=== PATIENT | male | born 1980 | race Caucasian/White ===

== ENCOUNTER 2019-05-21 07:36 | Day surgery (SDC) | payer SELFPAY ==
[2019-05-21 08:17] VITALS: BP 147/92; PULSE 70; RESP 16; TEMP 36.5; O2SAT 100; BMI 24.7
[2019-05-21] MEDS: Lactated Ringers 1,000 ML 100 ML IV (08:31)
[2019-05-21] MEDS: Cefazolin 2 GM in 0.9% Normal Saline 100 ML IV (09:26)
--- NOTE | 2019-05-21 09:33 | DCINST_ITS ---
Discharge Diet: Light diet - advance as tolerated Discharge Activity: Return to Normal Activity Call your doctor if your incision/area has: Continuous Slow Oozing, Sudden Increased Bleeding Suture Line Care: Avoid Pulling/Pushing, Avoid Pinching/Bending Allergies/Adverse Reactions: Allergies No Known Allergies Allergy (Verified 05/21/19 08:05) Medications to take at Discharge Oxycodone [Oxyir] 10 mg PO Q4H PRN PRN 05/20/19 Ciprofloxacin [Cipro] 500 mg PO BID #6 tab 05/21/19 Oxycodone HCl/Acetaminophen [Percocet 5/325] 1 tab PO Q4H PRN PRN #14 tab 05/21/19 The following prescriptions were given: Ciprofloxacin [Cipro] 500 mg PO BID #6 tab Prescription Printed Oxycodone HCl/Acetaminophen [Percocet 5/325] 1 tab PO Q4H PRN PRN #14 tab PRN Reason: Pain Prescription Printed Primary Care Physician: Ángel Muniz MD [Primary Care Provider] - Test Results: Test results from this visit will be discussed in further detail at your follow- up appointment, if applicable. Please Follow Up With: Justin Denney MD When: please call to make an appointment.
--- NOTE | 2019-05-21 10:23 | PCM.OPRPT ---
Report of Operation Date of Procedure: 05/21/19 Pre-Operative Diagnosis: Right proximal ureteral calculi Post-Operative Diagnosis: The same Surgery/Procedure Performed:: Cystoscopy and right stent placement, right extracorporeal shockwave lithotripsy Description of Surgical Findings:: 38-year-old male with a proximal right ureteral calculi causing obstruction was brought to the operating room today for a cystoscopy and right ESWL to treat the stone. After smooth induction of anesthesia he was placed in dorsolithotomy position, penis and testicles are prepped and draped in usual sterile fashion went into the bladder with a 21 Italian rigid cystourethroscope entire length of the urethra was normal inside the bladder identified the right ureteral orifice event the wire up into the kidney past the stone and over the wire advanced a stent, is a 6 Italian by 26 cm stent once a stent was in good position and pulled the wire the stent coiled in the kidney bladder good position we then repositioned the patient on the table and proceeded with shockwave lithotripsy a total of 3000 shocks were delivered to the stone at a rate of 90 power ranging from 5 to 7 kV. At the end of the treatment cycle the stone broke up in a very satisfactory fashion no visible fragments were seen under fluoroscopy. We monitor the stone under fluoroscopy during entire treatment. Appeared to be a successful treatment plan to see him next week with an x-ray and then plan to remove the stent we did leave a stent with a string. Type of Anesthesia:: General Drains: stent and - Admit VTE Documentation VTE Present on Admission: No VTE Mechan Device Prophylaxis: SCD's
[2019-05-21 10:28] VITALS: BP 135/92; BP 147/92; PULSE 68; RESP 18; TEMP 36.6; O2SAT 95
[2019-05-21 10:30] VITALS: BP 126/92; BP 147/92; PULSE 62; RESP 14; O2SAT 95
[2019-05-21 10:45] VITALS: BP 130/96; BP 147/92; PULSE 78; RESP 14; O2SAT 96
[2019-05-21 11:01] VITALS: BP 134/95; BP 147/92; PULSE 72; RESP 14; TEMP 36.3; O2SAT 100
[2019-05-21] MEDS: HYDROcodone Bitartrate/Apap 5/325 Tablet PO (11:23)
[2019-05-21 13:24] VITALS: BP 137/87; BP 147/92; PULSE 98; RESP 16; TEMP 36.6; O2SAT 97
== END 2019-05-21 13:26 | disposition home or self-care (01) ==
LOC: SDC 07:38 → AC 07:38
PROVIDERS: Family Provider Family Medicine; PCP Family Medicine; Referring Provider Urology; Visit Provider Urology
PROC: (CPT 50590; principal; 2019-05-21 09:10)
DX: N20.1 Calculus of ureter (principal); Z87.442 Personal history of urinary calculi
CPT/HCPCS: 00873; 50590; 52332; J7120; C2617; J2405

== ENCOUNTER → 2019-05-27 08:48 | Outpatient (CLI) | payer SELFPAY ==
[2019-05-21 08:17] VITALS: BMI 24.7
--- NOTE | 2019-05-27 09:00 | RAD_ITS ---
STUDY: X-RAY - ABDOMEN/PELVIS REASON FOR EXAM: Male, 38 years old. Kidney stones. TECHNIQUE: Single AP view of the abdomen / pelvis. COMPARISON: None. FINDINGS: A right-sided double-J stent catheter is seen with the distal tip in the right side of the bladder and the proximal tip in the renal pelvis. There is a moderate amount of colonic fecal material. The visualized liver, spleen and kidneys are grossly normal in size and morphology. No abnormal calcification is seen. Normal soft tissue structures. Degenerative changes of both hip joints. RAD/Abdomen Single View IMPRESSION: Right-sided double-J stent catheter. No evidence of abnormal calcification. Electronically Signed: Carlito Toro, at 10:58 EDT , Service support ,
== END ==
PROVIDERS: Family Provider Family Medicine; PCP Family Medicine; Referring Provider Urology; Visit Provider Urology
DX: N20.0 Calculus of kidney (principal)
CPT/HCPCS: 74018